=== PATIENT | female | born 2000 | race Caucasian/White ===

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

== ENCOUNTER 2018-01-03 03:19 | Outpatient (CLI) | payer BC, MEDICAID ==
[2018-01-03 03:54] LABS: APPEARANCE,URINE CLEAR; BILIRUBIN,URINE NEGATIVE (NEGATIVE); COLOR,URINE STRAW; GLUCOSE, URINE NEGATIVE (NEGATIVE); KETONES,URINE NEGATIVE (NEGATIVE); LEUKOCYTE ESTERASE,URINE TRACE (NEGATIVE); NITRITE,URINE NEGATIVE (NEGATIVE); PROTEIN,URINE NEGATIVE (NEGATIVE); URINE SPECIFIC GRAVITY 1.009; UROBILINOGEN,URINE NEGATIVE mg/dL (<2.0)
--- NOTE | 2018-01-03 04:07 | Non Stress Test Report ---
Non Stress Test Datetime Report Generated by CPN: 01/03/2018 04:07 DEMOGRAPHIC Test Number: 1 Test Number: 1 EGA NST: 37.3 INDICATION Indication for Study: Ordered by Provider URINE RESULTS Urine Protein, NST: Negative Urine Ketones - NST: Negative Urine Glucose - NST: Negative Urine Blood - NST: Negative MONITORING Monitor Explained: Monitor Explained; Test Explained; Patient Verbalized Understanding Time on Monitor: 01/03/2018 03:37 Time off Monitor: 01/03/2018 04:05 NST Duration: 28 NST INTERVENTIONS NST Interventions: PO Hydration; Reposition Patient Physician Notified NST: Dr. Younger BABY A: [id number] BABY A Contraction Frequency : Irregular FHR Baseline : 120 Accelerations : 15X15 Decelerations : None Variability : Moderate 6-25bpm NST Review: Meets Criteria for Reactive NST NST Review and Verified By : CLAUDIO Burris NST Results: Reactive NST REPORT Report Trigger: Send Report
[2018-01-03 04:10] LABS: URINE AMPHETAMINES SCREEN NEGATIVE; URINE BARBITURATES SCREEN NEGATIVE; URINE BENZODIAZEPINES SCREEN NEGATIVE; URINE COCAINE SCREEN NEGATIVE; URINE MARIJUANA (THC) SCREEN NEGATIVE; URINE METHADONE SCREEN NEGATIVE; URINE PHENCYCLIDINE SCREEN NEGATIVE
== END 2018-01-03 04:38 | disposition home or self-care (01) ==
LOC: LC 03:19
PROVIDERS: ATTEND Obstetrics & Gynecology
PROC: 4A1HXCZ Monitoring of Products of Conception, Cardiac Rate, External Approach (ICD-10-PCS; principal; 2018-01-03)
DX: O47.1 False labor at or after 37 completed weeks of gestation (principal); Z3A.37 37 weeks gestation of pregnancy
CPT/HCPCS: 59025; 80307; 81005

== ENCOUNTER 2018-01-13 11:18 | Outpatient (CLI) | payer BC, MEDICAID ==
[2018-01-13 12:46] LABS: APPEARANCE,URINE CLEAR; BILIRUBIN,URINE NEGATIVE (NEGATIVE); COLOR,URINE COLORLESS; GLUCOSE, URINE NEGATIVE (NEGATIVE); KETONES,URINE NEGATIVE (NEGATIVE); LEUKOCYTE ESTERASE,URINE NEGATIVE (NEGATIVE); NITRITE,URINE NEGATIVE (NEGATIVE); PROTEIN,URINE NEGATIVE (NEGATIVE); URINE SPECIFIC GRAVITY 1.003; UROBILINOGEN,URINE NEGATIVE mg/dL (<2.0)
[2018-01-13 13:06] LABS: URINE AMPHETAMINES SCREEN NEGATIVE; URINE BARBITURATES SCREEN NEGATIVE; URINE BENZODIAZEPINES SCREEN NEGATIVE; URINE COCAINE SCREEN NEGATIVE; URINE MARIJUANA (THC) SCREEN NEGATIVE; URINE METHADONE SCREEN NEGATIVE; URINE PHENCYCLIDINE SCREEN NEGATIVE
== END 2018-01-13 13:13 | disposition home or self-care (01) ==
LOC: LC 11:18
PROVIDERS: ATTEND Obstetrics & Gynecology
PROC: 4A1HXCZ Monitoring of Products of Conception, Cardiac Rate, External Approach (ICD-10-PCS; principal; 2018-01-13)
DX: O47.1 False labor at or after 37 completed weeks of gestation (principal); Z3A.38 38 weeks gestation of pregnancy
CPT/HCPCS: 59025; 80307; 81005

== ENCOUNTER 2018-01-18 05:04 | Inpatient (IN) | payer BC, MEDICAID ==
--- NOTE | 2018-01-18 05:16 | Non Stress Test Report ---
Non Stress Test Datetime Report Generated by CPN: 01/18/2018 05:16 DEMOGRAPHIC EGA NST: 38.6 INDICATION Indication for Study: Ordered by Provider MONITORING Monitor Explained: Monitor Explained; Test Explained; Patient Verbalized Understanding Time on Monitor: 01/13/2018 11:33 Time off Monitor: 01/13/2018 13:00 NST Duration: 87 NST INTERVENTIONS NST Interventions: None Physician Notified NST: Dr Younger BABY A: [id number] BABY A Movement : Present Contraction Frequency : 1-8 FHR Baseline : 135 Accelerations : 15X15 Decelerations : None Variability : Moderate 6-25bpm NST Review: Meets Criteria for Reactive NST NST Review and Verified By : González Raygoza RN NST Results: Reactive NST REPORT Report Trigger: Send Report
[2018-01-18 05:41] LABS: APPEARANCE,URINE SLIGHTLY-CLOUDY; BILIRUBIN,URINE NEGATIVE (NEGATIVE); COLOR,URINE STRAW; GLUCOSE, URINE NEGATIVE (NEGATIVE); KETONES,URINE NEGATIVE (NEGATIVE); LEUKOCYTE ESTERASE,URINE TRACE (NEGATIVE); NITRITE,URINE NEGATIVE (NEGATIVE); PROTEIN,URINE NEGATIVE (NEGATIVE); URINE SPECIFIC GRAVITY 1.012; UROBILINOGEN,URINE NEGATIVE mg/dL (<2.0)
[2018-01-18 06:01] LABS: URINE AMPHETAMINES SCREEN NEGATIVE; URINE BARBITURATES SCREEN NEGATIVE; URINE BENZODIAZEPINES SCREEN NEGATIVE; URINE COCAINE SCREEN NEGATIVE; URINE MARIJUANA (THC) SCREEN NEGATIVE; URINE METHADONE SCREEN NEGATIVE; URINE PHENCYCLIDINE SCREEN NEGATIVE
[2018-01-18] MEDS ORDERED: MISOPROSTOL 0.2 MG TABLET ONE (06:14)
[2018-01-18] MEDS ORDERED: OXYTOCIN 10 UNIT/ML VIAL ONE (06:14)
[2018-01-18] MEDS ORDERED: OXYTOCIN/NORMAL SALINE 0 UNIT/0 ML RTUINJ ONE (06:15)
[2018-01-18] MEDS ORDERED: LIDOCAINE 1% INJ-PF (10 MG/ML) 30 ML SDV ONE (06:15)
--- NOTE | 2018-01-18 06:37 | Admission Physical ---
Datetime Report Generated by CPN: 01/18/2018 06:37 CURRENT ADMISSION Chief Complaint: Suspected Ruptured Membranes Indication for Induction: Not Applicable Admit Impression : Ruptured Membranes Admit Plan: Admit to Unit; Initiate Labor Protocol ALLERGIES Medication Allergies: No Medication Allergies: adhesive tape (01/18/2018) Latex: No Latex Allergies Food Allergies: n/a Environmental Allergies: n/a OBSTETRICAL HISTORY EDC: 01/21/2018 00:00 : 1 Para: 0 Term: 0 : 0 SAB: 0 IAB: 0 Ectopic: 0 Livin Cesareans: 0 VBACs: 0 Multiple Births: 0 Gestational Diabetes: No Rh Sensitization: No Incompetent Cervix: No MITCH: No Infertility: No ART Treatment: No Uterine Anomaly: No IUGR: No Hx Previous C/S: No Macrosomia: No Hx Loss/Stillborn: No PIH: No Hx : No Placenta Previa/Abruption: No Depression/PP Depression: No PTL/PROM: No Post Hemorrhage: No Current Procedures: Ultrasound; NST Obstetrical History Comments: G1-Current SEE RECORDS Alcohol: No Marijuana : No Cocaine: No Other Illicit Drugs: No Cigarettes: Never Smoker. 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 Surgery: No Heart Disease: No Hosp/Surgery: Yes Autoimmune Disorder: No Anesthetic Complications: No Kidney Disease: No Abnormal Pap Smear: No Neuro/Epilepsy: No Psychiatric Disorders: No Other Medical Diseases: Yes Hepatitis/Liver Disease: No Significant Family History: No Varicosities/Phlebitis: No Trauma/Violence : No Thyroid Dysfunction: Yes Medical History Comments: Scleraderma; migraines, thyroid nodules, Tonsillectomy INFECTIOUS HISTORY Gonorrhea: No Genital Herpes: No Chlamydia: Yes Tuberculosis: No Syphilis: No Hepatitis: No HIV/AIDS Exposure: No Rash or Viral Illness: No HPV: No Infectious History Comments: chlamydia 2018, LIANET was negative PHYSICAL EXAM General: Normal HEENT: Normal Neurologic: Normal Thyroid: Normal Heart: Normal Lungs: Normal Breast: Normal Back: Normal Abdomen: Normal Genitourinary Exam: Normal Extremities: Normal DTRs: Normal Pelvic Type: Adequate Vital Signs: Reviewed; Within Normal Limits VAGINAL EXAM Dilatation: ft Effacement: thick Station: -3 Contraction Comments: q 2-4 MEMBRANES Pooling: Positive Membranes: Ruptured Amniotic Fluid Color: Clear FETUS A EGA: 39.4 Monitoring: External US FHR- Baseline: 130s Variability: Moderate 6-25bpm Accelerations: 15X15 Decelerations: None FHR Category: Category I Admit Comment: Not grossly ruptured; positive Actin Prom PLANS FOR LABOR AND DELIVERY Labor and Delivery: None Pain Management: Natural; Medications Other Pain Management Plans: NO EPIDURAL Feeding Preference: Breast Benefit of Breast Feed Discussed: Yes Circumcision: N/A INFORMED CONSENT Signature: with User ID: [email or web address]
[2018-01-18] MEDS ORDERED: PENICILLIN G-K 5 MILLION UNIT VIAL ONE ×2 (06:42→12:07)
[2018-01-18] MEDS ORDERED: PENICILLIN G POTASSIUM 5,000,000 UNIT in DEXTROSE 5%-WATER 100 ML IV ONE (06:43)
[2018-01-18 06:54] LABS: ABSOLUTE BASOPHILS # (AUTO) 0.1 10^3/uL (0.0-0.2); ABSOLUTE EOSINOPHILS # (AUTO) 0.1 10^3/uL (0.0-0.6); ABSOLUTE LYMPHOCYTES (AUTO) 1.9 10^3/uL (0.5-4.7); ABSOLUTE MONOCYTES (AUTO) 0.5 10^3/uL (0.1-1.4); ABSOLUTE NEUT (AUTO) 6.8 10^3/uL (1.7-8.2); HEMOGLOBIN 13.2 g/dL (12.0-15.5); LYMPHOCYTES % (AUTO) 20.4 % (13-45); MEAN CORPUSCULAR HEMOGLOBIN 29.4 pg (27.0-33.4); MEAN CORPUSCULAR HGB CONC 33.9 g/dL (32.0-36.0); MEAN CORPUSCULAR VOLUME 87 fl (80-97); MONOCYTES % (AUTO) 5.1 % (3-13); PLATELET COUNT 226 10^3/uL (150-450); RED BLOOD COUNT 4.51 10^6/uL (3.72-5.28); RED CELL DISTRIBUTION WIDTH 14.2 % (11.5-14.0); SEGMENTED NEUTROPHILS % (AUTO) 72.5 % (42-78); TOTAL CELLS COUNTED % (AUTO) 100 %; WHITE BLOOD COUNT 9.4 10^3/uL (4.0-10.5)
[2018-01-18] MEDS ORDERED: OXYTOCIN/NORMAL SALINE 20 UNIT/1,000 ML RTUINJ ONE (08:32)
[2018-01-18] MEDS ORDERED: MAG HYDROX/AL HYDROX/SIMETH SUSP 30 ML UDCUP ONE (08:33)
--- NOTE | 2018-01-18 08:34 | L&D Progress Notes ---
PROGRESS NOTES Datetime Report Generated by CPN: 01/18/2018 08:34 PROGRESS NOTE Impression: Reassuring Heart Rate Plan: Anticipate Vaginal Delivery Informed Consent Obtained: Vaginal Delivery Vital Signs : Reviewed Comment: Records reviewed, 39+4, SROM, mother at BS, GBS neg Cat 1 strip, Plan: Start Pitocin, monitor VAGINAL EXAM Dilatation: ft Effacement: thick Station: -3 Contractions: q 2-4 MEMBRANES Pooling: Positive Membranes: Ruptured Membranes: Ruptured Amniotic Fluid Color: Clear FETUS A Decelerations: None : 39.4 SIGNATURE SIGNATURE: [id number] SIGNATURE: [id number] SIGNATURE: [id number] SIGNATURE: ,[id number] Assignment: Alvarado Lee MD Signature: with User ID: [email or web address] : with User ID: [email or web address]
[2018-01-18] MEDS ORDERED: OXYTOCIN/NORMAL SALINE 20 UNIT/1,000 ML RTUINJ IV PRN ×2 (08:49→16:52)
[2018-01-18] MEDS ORDERED: ONDANSETRON HCL INJ/PF 4 MG/2 ML SDV ONE (10:15)
[2018-01-18] MEDS ORDERED: PENICILLIN G POTASSIUM 2,500,000 UNIT in DEXTROSE 5%-WATER 50 ML IV SCH (10:45)
[2018-01-18] MEDS ORDERED: NALBUPHINE HCL INJ 10 MG/1 ML AMPULE ONE ×3 (10:53→15:37)
[2018-01-18] MEDS ORDERED: PENICILLIN G-K 5 MILLION UNIT VIAL IV ONE (11:00)
[2018-01-18] MEDS ORDERED: NALBUPHINE HCL INJ 10 MG/1 ML AMPULE INJ ONE (11:30)
[2018-01-18] MEDS ORDERED: ONDANSETRON HCL INJ/PF 4 MG/2 ML SDV IV ONE (11:30)
--- NOTE | 2018-01-18 12:47 | L&D Progress Notes ---
PROGRESS NOTES Datetime Report Generated by CPN: 01/18/2018 12:47 PROGRESS NOTE Impression: Reassuring Heart Rate Plan: Continue Present Management; Induction Informed Consent Obtained: Vaginal Delivery Vital Signs : Reviewed; Within Normal Limits Comment: resting on left side, Nubain hekped pain, Cat 1 strip, irreg uc's, early decelerations FETUS A Monitoring: External US FETUS C SIGNATURE: [id number];[id number];[id number] Assignment: Alvarado Lee MD Signature: with User ID: [email or web address] : with User ID: [email or web address]
[2018-01-18] MEDS ORDERED: NALBUPHINE HCL INJ 10 MG/1 ML AMPULE IV ONE (15:36)
[2018-01-18] MEDS ORDERED: DIPHENHYDRAMINE HCL 25 MG CAPSULE PO PRN (16:52)
[2018-01-18] MEDS ORDERED: GLYCERIN/WITCH HAZEL LEAF 1 EACH MED..PAD TP PRN (16:52)
[2018-01-18] MEDS ORDERED: PROMETHAZINE HCL INJ 25 MG/1 ML VIAL IV PRN (16:52)
[2018-01-18] MEDS ORDERED: ACETAMINOPHEN 650 MG SUPP.RECT PR PRN (16:52)
[2018-01-18] MEDS ORDERED: PROMETHAZINE HCL 25 MG TABLET PO PRN (16:52)
[2018-01-18] MEDS ORDERED: DIBUCAINE 1% OINTMENT 28 GM TP PRN (16:52)
[2018-01-18] MEDS ORDERED: PSEUDOEPHEDRINE HCL 30 MG TABLET PO PRN (16:52)
[2018-01-18] MEDS ORDERED: MEASLES,MUMPS&RUBELLA VACC/PF 0.5 ML VIAL SUBCUT PRN (16:52)
[2018-01-18] MEDS ORDERED: PROMETHAZINE HCL 25 MG SUPP.RECT PR PRN (16:52)
[2018-01-18] MEDS ORDERED: MAGNESIUM HYDROXIDE SUSP 30 ML UDCUP PO PRN (16:52)
[2018-01-18] MEDS ORDERED: NA PHOS,M-B/NA PHOS,DI-BA (ADULT) 133 ML ENEMA PR PRN (16:52)
[2018-01-18] MEDS ORDERED: ACETAMINOPHEN WITH CODEINE #3 TABLET PO PRN ×2 (16:52)
[2018-01-18] MEDS ORDERED: DIPH/PERTUSS(ACELL)/TETANUS VAC/PF 0.5 ML SYR (>=10YO) IM PRN (16:52)
--- NOTE | 2018-01-18 17:09 | Warning Signs in Babies ---
VOD Warning Signs Datetime Report Generated by [facility]: 01/18/2018 17:08 VOD#[id number] -Warning Signs in Babies: Viewed with Parent(s)/Family (01/03/2018 03:23:Colton Salas RN)
--- NOTE | 2018-01-18 18:57 | Delivery Summary ---
Del Sum A-C Datetime Report Generated by CPN: 01/18/2018 18:56 DELIVERY PERSONNEL DELIVERY PERSONNEL: [id number] Delivery Doctor:: Rosey Arce CNM Nurse Finance Analyst Certified:: Rosey Arce CNM Labor and Delivery Nurse:: Colton Salas RNoriental medicine practitioner Nurse:: Marilia Robledo RN Nursery Nurse:: Ninfa Hall RN Sole Scraper/HOME HELP AIDE: Violet Bucio CNA II Sole Scraper/HOME HELP AIDE: Darshana Herring, ST Additional Personnel: : Valarie Page, RNC MATERNAL INFORMATION Delivery Anesthesia: Local Medications After Delivery: Pitocin Bolus-Please Comment Meds After Delivery Comment: Pitocin 20 units in 1000 open for bolus Maternal Complications: None; Prolonged Labor > 20 Hrs Provider Comments: viable female from OA to SHERRIE over ML laceration placed on mothers abd, cord clamped and cut after 2 minutes, spont delivery of grossly nl intact placenta, cord blood to lab ML and vaginal laceration repaired with 2-0 chromic without difficulty using 1% Xylocaine, rectum patent, hemostasis maintained with sutures, baby to nursery for evaluation FFFM. IV Pitocin (Annotations: Data stored by N on behalf of user) LABOR SUMMARY EDC: 01/21/2018 00:00 No. Babies in Womb: 1 Attempted: No Labor Anesthesia: IV Sedation LABOR INFORMATION Reason for Induction: Not Applicable Onset of Labor: 01/18/2018 12:40 Complete Dilatation: 01/18/2018 15:47 Oxytocin: Augmentation Group B Beta Strep: Positive Antibiotics # of Doses: 2 Antibiotics Time of Last Dose: 1212 Name of Antibiotic Given: Penicillin Steroids Given: None Reason Steroids Not Administered: Not Applicable MEMBRANES Membranes Rupture Method: Spontaneous Rupture of Membranes: 01/18/2018 03:30 Length of Rupture (hr): 12.58 Amniotic Fluid Color: Clear Amniotic Fluid Amount: Scant Amniotic Fluid Odor: Normal STAGES OF LABOR Stage 1 hr: 3 Stage 1 min: 7 Stage 2 hr: 0 Stage 2 min: 18 Stage 3 hr: 0 Stage 3 min: 5 Total Time in Labor hr: 3 Total Time in Labor min: 30 VAGINAL DELIVERY Episiotomy: None Laceration #1: Perineal Laceration Extension #1: Second Degree Laceration Repair: Yes Laceration Repair Note: 2-0 chromic with Xylocaine 1% Sponge Count Correct: N/A Sharps Count Correct: Yes CSECTION DELIVERY Primary Indication: N/A Secondary Indication: N/A CSection Incidence: N/A Labor: N/A Elective: N/A CSection Incision: N/A BABY A INFORMATION Infant Delivery Date/Time: 01/18/2018 16:05 Method of Delivery: Vaginal Born in Route : No : N/A Forceps: N/A Vacuum Extraction: N/A Shoulder Dystocia : No PRESENTATION/POSITION BABY A Presentation: Cephalic Cephalic Presentation: Vertex Vertex Position: Right Occipital Transverse Breech Presentation: N/A PLACENTA INFORMATION BABY A Placenta Delivery Time : 01/18/2018 16:10 Placenta Method of Delivery: Spontaneous Placenta Status: Delivered SCORES BABY A Heart Rate 1 min: >100 bpm Resp Effort 1 min: Good Cry Reflex Irritability 1 min: Cough or Sneeze or Pulls Away Muscle Tone 1 min: Active Motion Color 1 min: Blue/Pale Resuscitation Effort 1 min: Tactile Stimulation SCORE 1 MIN: 8 Heart Rate 5 min: >100 bpm Resp Effort 5 min: Good Cry Reflex Irritability 5 min: Cough or Sneeze or Pulls Away Muscle Tone 5 min: Active Motion Color 5 min: Blue/Pale Resuscitation Effort 5 min: Tactile Stimulation; Oxygen SCORE 5 MIN: 8 INFANT INFORMATION BABY A Gestational Age at Delivery: 39.5 Gestational Status: Full Term- 39- 40.6 Weeks Outcome : Liveborn Condition : Stable Infant Sex: Female IDENTIFICATION BABY A Verification Date/Time: 01/18/2018 16:22 ID Band Number: [id number] Mother's Name Verified: Yes Infant RN Verifying Infant: Alondra Salas, RN and F. Quiles, ST WEIGHT/LENGTH BABY A Infant Birthweight (gm): 3045 Infant Weight (lb): 6 Infant Weight (oz): 11 Length (in): 20.50 Infant Length (cm): 52.07 CORD INFORMATION BABY A No. Cord Vessels: 3 Nuchal Cord : N/A Cord Blood Taken: Yes-For Eval (Mom's Blood Type - or O+) Infant Suction: Mouth; Nose ASSESSMENT BABY A Infant Complications: Extended Bradycardia; Multiple Variable Decels Physical Findings at Delivery: Caput Succedaneum Skin to Skin: Yes Wheelchair Van Operator First Responder/ALS Called : No Infant Care By: Randy Rafael RN Transferred To: Nursery BABY B INFORMATION : N/A
[2018-01-18] MEDS: DOCUSATE SODIUM 100 MG CAPSULE PO SCH (20:12)
[2018-01-18] MEDS: FERROUS SULFATE 325 MG TABLET PO SCH (20:12)
[2018-01-18] MEDS: FAMOTIDINE 20 MG TABLET PO SCH (21:38)
[2018-01-18] MEDS: IBUPROFEN 800 MG TABLET PO SCH (21:38)
[2018-01-19] MEDS: IBUPROFEN 800 MG TABLET PO SCH ×3 (05:15→21:29)
[2018-01-19 08:20] LABS: HEMATOCRIT 28.4 % (36.0-47.0); MEAN CORPUSCULAR HEMOGLOBIN 29.3 pg (27.0-33.4); MEAN CORPUSCULAR HGB CONC 33.3 g/dL (32.0-36.0); MEAN CORPUSCULAR VOLUME 88 fl (80-97); PLATELET COUNT 179 10^3/uL (150-450); RED BLOOD COUNT 3.23 10^6/uL (3.72-5.28); RED CELL DISTRIBUTION WIDTH 14.4 % (11.5-14.0); WHITE BLOOD COUNT 12.9 10^3/uL (4.0-10.5)
[2018-01-19 08:21] LABS: HEMOGLOBIN 9.5 g/dL (12.0-15.5)
[2018-01-19] MEDS: FERROUS SULFATE 325 MG TABLET PO SCH ×2 (09:21→17:55)
[2018-01-19] MEDS: PRENATAL VITAMIN W DHA CAPSULE PO SCH (09:21)
[2018-01-19] MEDS: SENNOSIDES/DOCUSATE 8.6-50 MG 1 EACH TABLET PO SCH (09:21)
[2018-01-19] MEDS: DOCUSATE SODIUM 100 MG CAPSULE PO SCH ×2 (09:21→17:55)
[2018-01-19] MEDS: FAMOTIDINE 20 MG TABLET PO SCH ×2 (09:21→21:29)
--- NOTE | 2018-01-19 09:31 | PDOC PROGRESS REPORT ---
Subjective-OB Progress Note for:: 01/19/18 Subjective: Doing better this am, wants IV out, decrease bleeding, voiding, Physical Exam (OB) Vital Signs: Temp Pulse Resp BP Pulse Ox 98.4 F 94 H 18 100/55 L 99 01/18/18 19:54 01/18/18 20:55 01/18/18 19:54 01/18/18 19:54 01/18/18 19:54 Intake & Output 01/18/18 01/19/18 01/20/18 06:59 06:59 06:59 Output Total 300 Balance -300 Weight 72 kg - PIH/Pre-Eclampsia Clonus: Negative Headache: Absent Epigastric Pain: No Visual Changes: No - Lochia Lochia Amount: Small 10-25 ml Lochia Color: Rubra/Red - Abdomen Description: Tender, Soft Hernia Present: No Fundal Description: Firm, Midline Fundal Height: u/u - u/2 Objective-Diagnostic Laboratory: 01/19/18 07:51 01/19/18 07:51 WBC 12.9 H RBC 3.23 L Hgb 9.5 L D Hct 28.4 L MCV 88 MCH 29.3 MCHC 33.3 RDW 14.4 H Plt Count 179 Assessment and Plan(PN) - Assessment and Plan (1) GBS (group B Streptococcus carrier), +RV culture, currently Is this a current diagnosis for this admission?: Yes (2) Delivery normal Is this a current diagnosis for this admission?: Yes - Time Spent with Patient Time with patient: Less than 15 minutes Medications reviewed and adjusted accordingly: Yes - Disposition Anticipated Discharge: Home Within: within 24 hours
[2018-01-19] MEDS: BENZOCAINE/MENTHOL AEROSOL SPRAY 56 ML TOP PRN (12:15)
[2018-01-20] MEDS: IBUPROFEN 800 MG TABLET PO SCH (06:28)
[2018-01-20 08:52] VITALS: BP 110/71
--- NOTE | 2018-01-20 09:50 | PDOC PROGRESS REPORT ---
Subjective-OB Progress Note for:: 01/20/18 Subjective: Feeling better today, mother at BS, doing well, scant bleeding, voiding Physical Exam (OB) Vital Signs: Temp Pulse Resp BP Pulse Ox 97.6 F 84 16 110/71 96 01/20/18 07:47 01/20/18 07:47 01/20/18 07:47 01/20/18 07:47 01/20/18 07:47 Intake & Output 01/19/18 01/20/18 01/21/18 06:59 06:59 06:59 Output Total 300 Balance -300 - PIH/Pre-Eclampsia Clonus: Negative Headache: Absent Epigastric Pain: No Visual Changes: No - Dressing Removed: Yes - Lochia Lochia Amount: Scant < 10 ml Lochia Color: Rubra/Red - Abdomen Description: Tender, Soft, Round Hernia Present: No Fundal Description: Firm, Midline Fundal Height: u/u - u/2 Objective-Diagnostic Laboratory: 01/19/18 07:51 Assessment and Plan(PN) - Assessment and Plan (1) GBS (group B Streptococcus carrier), +RV culture, currently Is this a current diagnosis for this admission?: Yes (2) Delivery normal Is this a current diagnosis for this admission?: Yes - Time Spent with Patient Time with patient: Less than 15 minutes Medications reviewed and adjusted accordingly: Yes - Disposition Anticipated Discharge: Home Within: within 24 hours
--- NOTE | 2018-01-20 09:54 | PDOC DISCHARGE SUMMARY ---
Final Diagnosis Discharge Date: 01/20/18 - Final Diagnosis (1) GBS (group B Streptococcus carrier), +RV culture, currently Is this a current diagnosis for this admission?: Yes (2) Delivery normal Is this a current diagnosis for this admission?: Yes Discharge Data - Discharge Medication Prescriptions: Ferrous Sulfate [Feosol 325 mg Tablet] 325 mg PO BID #60 tablet Home Medications: Pediatric Multivitamin No.136 [Children Multivitamin] 1 tab PO DAILY 01/03/18 Ferrous Sulfate [Feosol 325 mg Tablet] 325 mg PO BID #60 tablet 01/20/18 Gestational Age: 39.5 Reason(s) for Admission: PROM Procedures: NST, Ultrasound Intrapartum Procedure(s): Spontaneous Vaginal Delivery Complication(s): Laceration-Perineal Laceration-Degree: 2nd - Data Baby 1 Female Home with Mother: Yes Complications: No - Diagnosis Test Laboratory: Temp Pulse Resp BP Pulse Ox 97.6 F 84 16 110/71 96 01/20/18 07:47 01/20/18 07:47 01/20/18 07:47 01/20/18 07:47 01/20/18 07:47 01/18/18 01/18/18 01/19/18 05:20 06:43 07:51 RBC 4.51 3.23 L Hgb 13.2 9.5 L D Hct 39.0 28.4 L Urine Opiates Screen NEGATIVE - Discharge information/Instructions Discharge Activity: Activity As Tolerated, No Lifting Over 10 Pounds, No Lifting /Push/Pulling, Pelvic Rest Discharge Diet: As Tolerated, Regular Disposition: HOME, SELF-CARE Follow up with: [facility] in: 2, Weeks
[2018-01-20] MEDS: SENNOSIDES/DOCUSATE 8.6-50 MG 1 EACH TABLET PO SCH (09:57)
[2018-01-20] MEDS: FERROUS SULFATE 325 MG TABLET PO SCH (09:57)
[2018-01-20] MEDS: PRENATAL VITAMIN W DHA CAPSULE PO SCH (09:57)
[2018-01-20] MEDS: DOCUSATE SODIUM 100 MG CAPSULE PO SCH (09:57)
[2018-01-20] MEDS: FAMOTIDINE 20 MG TABLET PO SCH (09:57)
[2018-01-20] MEDS: BENZOCAINE/MENTHOL AEROSOL SPRAY 56 ML TOP PRN (13:06)
== END 2018-01-20 13:25 | disposition home or self-care (01) | DRG 806 ==
LOC: LC 05:04 → LR 06:16 → 2S 18:36
PROVIDERS: ADMIT Obstetrics & Gynecology; ATTEND Obstetrics & Gynecology
PROC: 10E0XZZ Delivery of Products of Conception, External Approach (ICD-10-PCS; principal; 2018-01-18)
PROC: 0KQM0ZZ Repair Perineum Muscle, Open Approach (ICD-10-PCS; 2018-01-18)
PROC: 4A1HXCZ Monitoring of Products of Conception, Cardiac Rate, External Approach (ICD-10-PCS; 2018-01-18)
DX: O76 Abnormality in fetal heart rate and rhythm complicating labor and delivery (principal); O63.9 Long labor, unspecified; Z37.0 Single live birth; O99.354 Diseases of the nervous system complicating childbirth; O99.824 Streptococcus B carrier state complicating childbirth; O42.92 Full-term premature rupture of membranes, unspecified as to length of time between rupture and onset of labor; O70.1 Second degree perineal laceration during delivery; G43.909 Migraine, unspecified, not intractable, without status migrainosus; O99.284 Endocrine, nutritional and metabolic diseases complicating childbirth; E04.1 Nontoxic single thyroid nodule; Z3A.39 39 weeks gestation of pregnancy
CPT/HCPCS: 36415; 80307; 81005; 84112; 85025; 85027; 86592; 86850; 86900; 86901; 94760; J2300; J2405; J2540; J2590; J3490

== ENCOUNTER → 2018-11-27 | Outpatient (CLI) | payer OTHER, BC, MEDICAID ==
--- NOTE | 2018-11-27 15:56 | RADIOLOGY REPORT (SQ) ---
EXAM DESCRIPTION: HAND RIGHT 3 VIEWS COMPLETED DATE/TIME: 11/27/2018 3:45 pm REASON FOR STUDY: INJURY OF RT HAND,INITIAL ENCOUNTER S69.91XA UNSP INJURY OF RIGHT WRIST, HAND AND FINGER(S), INI COMPARISON: None. EXAM PARAMETERS: NUMBER OF VIEWS: Three views. TECHNIQUE: AP, lateral and oblique radiographic images acquired of the right hand. LIMITATIONS: None. FINDINGS: MINERALIZATION: Normal. BONES: No acute fracture or dislocation. No worrisome bone lesions. JOINTS: No effusions. SOFT TISSUES: No soft tissue swelling. No foreign body. OTHER: No other significant finding. IMPRESSION: NEGATIVE STUDY OF THE RIGHT HAND. NO RADIOGRAPHIC EVIDENCE OF ACUTE INJURY. TECHNICAL DOCUMENTATION: JOB ID: [id number] [employer]- All Rights Reserved Reading location - IP/workstation name: [email or web address]
== END ==
LOC: OD 15:30
PROVIDERS: ATTEND Nurse Practitioner Acute Care
DX: S69.91XA Unspecified injury of right wrist, hand and finger(s), initial encounter (principal); X58.XXXA Exposure to other specified factors, initial encounter; Y93.9 Activity, unspecified; Y92.9 Unspecified place or not applicable

== ENCOUNTER 2019-11-28 14:50 | Emergency (ER) | payer BC, MEDICAID ==
--- NOTE | 2019-11-28 15:50 | ER Document Report ---
ED General - General Chief Complaint: Sore Throat Stated Complaint: SORE THROAT,NAUSEA,MUSCLE PAIN Time Seen by Provider: 11/28/19 15:15 Primary Care Provider: CAROL ROBLERO NP [Primary Care Provider] - Follow up as needed Notes: CHIEF COMPLAINT: Sore throat, nasal congestion, slight cough for 1 day HPI: 19-year-old female presenting for sore throat nasal congestion with slight cough for 1 day no shortness of breath or chest pain. No abdominal pain nausea vomiting. Patient states that she might be but is not sure and would like a test. ROS: See HPI - all other systems were reviewed and are otherwise negative Constitutional: no fever Eyes: no drainage, no blurred vision ENT: + Runny nose, + sore throat Cardiovascular: no chest pain Resp: no SOB, no cough GI: no vomiting, no diarrhea, no abdominal pain : no dysuria Integumentary: no rash Allergy: no hives Musculoskeletal: no extremity pain or swelling Neurological: no numbness/tingling, no weakness MEDICATIONS: I agree with the patient medications as charted by the RN. ALLERGIES: I agree with the allergies as charted by the RN. PAST MEDICAL HISTORY/PAST SURGICAL HISTORY: Reviewed and agree as charted by RN. SOCIAL HISTORY: Reviewed and agree as charted by RN. FAMILY HISTORY: No significant familial comorbid conditions directly related to patient complaint EXAM: Reviewed vital signs as charted by RN. CONSTITUTIONAL: Alert and oriented and responds appropriately to questions. Well-appearing; well-nourished HEAD: Normocephalic; atraumatic EYES: PERRL; Conjunctivae clear, sclerae non-icteric ENT: normal nose; + clear rhinorrhea; moist mucous membranes; pharynx without lesions noted, no uvula edema or deviation, no tonsillar hypertrophy, phonation normal NECK: Supple without meningismus; non-tender; no cervical lymphadenopathy, no masses CARD: RRR; no murmurs, no clicks, no rubs, no gallops; symmetric distal pulses RESP: Normal chest excursion without splinting or tachypnea; breath sounds clear and equal bilaterally; no wheezes, no rhonchi, no rales, pulse oximetry 98% on room air not hypoxic ABD/GI: Normal bowel sounds; non-distended; soft, non-tender, no rebound, no guarding; no palpable organomegaly or masses. BACK: The back appears normal and is non-tender to palpation, there is no CVA tenderness EXT: Normal ROM in all joints; non-tender to palpation; no cyanosis, no effusions, no edema SKIN: Normal color for age and race; warm; dry; good turgor; no acute lesions noted NEURO: Moves all extremities equally; Motor and sensory function intact PSYCH: The patient's mood and manner are appropriate. Grooming and personal hygiene are appropriate. MDM: 19-year-old female presenting with sore throat with nasal congestion and a slight dry cough for 1 day. Will obtain rapid strep. Patient states she will not be allowed to work unless she has either a positive strep test or negative COVID test. Patient does not have significant pharyngeal erythema on exam. If strep is negative will obtain COVID study and she will self quarantine at home for 2 to 5 days until test results. If strep is positive we will treat with antibiotics TRAVEL OUTSIDE OF THE [place] IN LAST 30 DAYS: No - Related Data Allergies/Adverse Reactions: adhesive tape Adverse Reaction (Verified 11/28/19 15:11) Past Medical History - Social History Smoking Status: Never Smoker Chew tobacco use (# tins/day): No Frequency of alcohol use: None Drug Abuse: None Family History: Reviewed & Not Pertinent, Arthritis, DM, Hyperlipidemia, Hypertension, Malignancy, Thyroid Disfunction Endocrine Medical History: Reports: Hx Hypothyroidism Renal/ Medical History: Denies: Hx Peritoneal Dialysis Psychiatric Medical History: Reports: Hx Depression, Hx Post Traumatic Stress Disorder Past Surgical History: Reports: Hx Adenoidectomy, Hx Tonsillectomy - Immunizations Immunizations up to date: Yes Hx Diphtheria, Pertussis, Tetanus Vaccination: Yes Physical Exam - Vital signs Vitals: Temp Pulse Resp BP Pulse Ox 98.4 F 95 16 119/79 100 11/28/19 15:00 11/28/19 15:00 11/28/19 15:00 11/28/19 15:00 11/28/19 15:00 Course - Re-evaluation Re-evalutation: 11/28/19 15:51 Rapid strep is negative will obtain COVID study will self quarantine at home 2 to 5 days until test results 11/28/19 16:04 patient test is positive. she has no abdominal pain complaints - Vital Signs Vital signs: Temp Pulse Resp BP Pulse Ox 98.4 F 95 16 119/79 100 11/28/19 15:00 11/28/19 15:00 11/28/19 15:00 11/28/19 15:00 11/28/19 15:00 - Laboratory Laboratory results interpreted by me: 11/28/19 15:30 Urine HCG, Qual POSITIVE H Discharge - Discharge Clinical Impression: Sore throat (viral), Person under investigation for COVID-19 Qualifiers: Weeks of gestation: unspecified Qualified Code(s): Z34.90 - Encounter for supervision of normal , unspecified, unspecified trimester Condition: Stable Disposition: HOME, SELF-CARE Additional Instructions: Rapid strep test today was negative. You are considered a person under investigation for COVID-19 at this time self quarantine at home until you have test results which normally take 2 to 5 days. You should hear from someone at the hospital about your results. Treat your symptoms symptomatically, decongestants for the nasal congestion, Motrin Tylenol for body ache. Your test today was positive. Follow up with OBGYN Forms: Return to Work Referrals: CAROL ROBLERO NP [Primary Care Provider] - Follow up as needed
[2019-11-28 17:08] VITALS: BP 120/78
== END 2019-11-28 16:55 | disposition home or self-care (01) ==
LOC: ER 14:50
DX: Z34.90 Encounter for supervision of normal pregnancy, unspecified, unspecified trimester (principal); J02.9 Acute pharyngitis, unspecified; R11.0 Nausea; M79.10 Myalgia, unspecified site; R05 Cough; R09.81 Nasal congestion; Z20.828 Contact with and (suspected) exposure to other viral communicable diseases
CPT/HCPCS: 99283; 87070; 87880; 81025; U0003; C9803; 87635